=== PATIENT | female | born 1980 | race Caucasian/White ===

== ENCOUNTER → 2017-10-21 | Outpatient (CLI) | payer OTHER ==
--- NOTE | 2017-10-21 12:09 | MR ---
EXAMINATION TYPE: MR knee RT wo con DATE OF EXAM: 10/21/2017 COMPARISON: None HISTORY: Bilat primary OA of knee, Rt. knee pain TECHNIQUE: Multiplanar, multisequence images of the knee is performed without IV contrast. FINDINGS: MEDIAL MENISCUS: Anterior and posterior horns are intact without tear. LATERAL MENISCUS: Anterior and posterior horns are intact without tear. CRUCIATE LIGAMENTS: The anterior and posterior cruciate ligaments are intact and unremarkable. COLLATERAL LIGAMENTS: The medial collateral ligament and lateral collateral ligament complex are inta ct and unremarkable. EXTENSOR MECHANISM: Visualized quadriceps and patellar tendons are intact. EFFUSION: No significant suprapatellar joint effusion. POPLITEAL CYST: No popliteal/osborne cyst. TRICOMPARTMENT SPACES: Intact CARTILAGE: Intact BONE MARROW SIGNAL: Cystic lesion with internal matrix proximal fibula measures 1.9 cm in greatest di mension and may reflect a fibrous or chondroid lesion. Further evaluation with bone scan could be obt ained. OTHER: No additional significant abnormality is appreciated. IMPRESSION: 1. No evidence for internal arrangement. 2. Proximal fibular lesion is nonspecific. There may be mild cortical thinning. Differential includes a fibrous as well as a chondroid lesions. Consider bone scan for further assessment.
== END | disposition home or self-care (01) ==
LOC: RADMRIMAIN 09:48
PROVIDERS: ATTEND Family Medicine
DX: M89.9 Disorder of bone, unspecified (principal)

== ENCOUNTER → 2017-11-03 | Outpatient (CLI) | payer OTHER ==
--- NOTE | 2017-11-03 16:21 | NM ---
EXAMINATION TYPE: NM bone/joint limited DATE OF EXAM: 11/03/2017 COMPARISON: NONE HISTORY: Pain right lower leg TECHNIQUE: After the intravenous administration of 19.0 mCi Tc 99m MDP. Images acquired 3 hours pos t injection. Multiple views of lower extremities are submitted. There is mild increased uptake about the bilateral knees. Some mild focal radiotracer is in the proxi mal right fibula. Fibular uptake corresponds to the MRI findings. Assessment for calcification has not been performed w hich may help in narrowing the differential. Recommend three-view right knee plain film x-rays for co rrelation. IMPRESSION: 1. Diffuse uptake at the bilateral knees may be degenerative in nature. 2. There is focal radiotracer accumulation at the proximal right fibula likely within the metaphyseal region. This area corresponds to the abnormality on MRI. Plain film correlation is recommended for a dditional assessment for calcification.
== END | disposition home or self-care (01) ==
LOC: RADNMMAIN 09:42
PROVIDERS: ATTEND Family Medicine
DX: M89.9 Disorder of bone, unspecified (principal)
CPT/HCPCS: 78300; A9503

== ENCOUNTER → 2018-05-18 | Outpatient (CLI) | payer OTHER | END | disposition home or self-care (01) | LOC: RADUSWWP 12:08 | PROVIDERS: ATTEND Family Medicine | DX: M79.669 Pain in unspecified lower leg (principal); M47.816 Spondylosis without myelopathy or radiculopathy, lumbar region; D68.51 Activated protein C resistance | CPT/HCPCS: 93923 ==

== ENCOUNTER → 2018-10-20 | Outpatient (CLI) | payer OTHER ==
--- NOTE | 2018-10-20 14:26 | MR ---
MRI CERVICAL SPINE: CLINICAL HISTORY: Numbness in hands per order. Headache with pain or weakness into both arms and fing ers for patient. TECHNIQUE: Multiplanar, multisequence imaging of the cervical spine is performed without IV contrast. COMPARISON: MRI cervical spine November 30, 2015 FINDINGS: Sagittal images of the cervical spine show the craniocervical junction to remain within nor mal limits. The cervical and upper thoracic spinal cord remains normal in course, caliber, and signa l. There is persistent grade 1 retrolisthesis of C5 on C6 and C6 on C7. Mild disc space narrowing at these levels with mild to moderate anterior spurring is redemonstrated The vertebral body and intrave rtebral disk heights otherwise are normal. The bone marrow signal intensity is within normal limits. Axial images show the C2-C3, C3-C4, and C4-C5 levels all to appear within normal limits. Axial images at the C5-C6 level demonstrates broad-based posterior disc protrusion effacing anterior thecal sac and causing mild bilateral neural foraminal narrowing on current study, latter new from pr ior. Axial images at the C6-C7 level showed broad based central disc protrusion effacing anterior thecal s ac and causing [id number] left and mild right-sided neural foraminal narrowing. No significant change from prior. Axial images at C7-T1 level remain within normal limits. IMPRESSION: Spondylolisthesis and degenerative change redemonstrated C5-C6 and C6-C7 level. Some prog ression in findings are felt present C5-C6 level from prior MRI.
== END | disposition home or self-care (01) ==
LOC: RADMRIMAIN 11:55
PROVIDERS: ATTEND Psychiatry & Neurology Neurology
DX: M43.12 Spondylolisthesis, cervical region (principal); M47.812 Spondylosis without myelopathy or radiculopathy, cervical region
CPT/HCPCS: 72141

== ENCOUNTER → 2019-02-25 | Outpatient (CLI) | payer OTHER ==
--- NOTE | 2019-02-25 21:09 | MR ---
EXAMINATION TYPE: MR thoracic spine wo con DATE OF EXAM: 02/25/2019 COMPARISON: NONE HISTORY: Hereditary spastic paraplegia, C7 radiculopathy, and right leg pain all per order. TECHNIQUE: Multiplanar, multisequence imaging of thoracic spine is performed without contrast FINDINGS: Spinal cord shows normal course, caliber, and signal as it courses the thoracic spine. Afshan tebral body heights are satisfactory. Alignment is somewhat straightened on sagittal images. Spondyl olisthesis and posterior disc herniation C6-C7 level noted. There is disc desiccation with small post erior disc herniation effacing the anterior thecal sac at T11-T12 level. This space heights are maint ained. Bone marrow signal intensity is preserved. Review of the axial images shows no significant spinal canal stenosis or neural foraminal narrowing at any thoracic level. No additional significant disc herniation is seen. Visualized thorax and uppe r abdomen are within normal limits. Paraspinal muscle bulk is maintained. IMPRESSION: Straightening of thoracic spine with some degenerative change T11-T12 level. Thoracic spi nal cord within normal limits.
== END | disposition home or self-care (01) ==
LOC: RADMRIMAIN 14:41
PROVIDERS: ATTEND Psychiatry & Neurology Neurology
DX: M47.814 Spondylosis without myelopathy or radiculopathy, thoracic region (principal); G11.4 Hereditary spastic paraplegia
CPT/HCPCS: 72146